=== PATIENT | female | born 2000 | race Caucasian/White ===

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

== ENCOUNTER → 2021-11-13 | Outpatient (CLI) | payer BC ==
[2021-11-13 18:04] LABS: Basophils # (A) 0.07 X 10*3/uL (0.00-0.10); Basophils % (A) 0.9 %; Eosinophils # (A) 0.47 X 10*3/uL (0.04-0.35); Eosinophils % (A) 6.1 %; HCT 44.5 % (37.2-46.3); HGB 14.6 g/dL (12.0-15.0); Lymphocytes # (A) 1.49 X 10*3/uL (0.90-5.00); Lymphocytes % (A) 19.4 %; MCH 27.9 pg (27.0-32.0); MCHC 32.8 g/dL (32.0-37.0); MCV 85.1 fL (80.0-97.0); Mean Platelet Volume 10.6 fL (9.5-12.2); Monocytes # (A) 0.58 X 10*3/uL (0.20-1.00); Monocytes % (A) 7.6 %; Neutrophils # (A) 5.04 X 10*3/uL (1.80-7.70); Neutrophils % (A) 65.7 %; Platelet Count 270 X 10*3/uL (140-440); RBC 5.23 X 10*6/uL (4.10-5.20); RDW 12.5 % (11.5-14.5); WBC 7.67 X 10*3/uL (4.50-10.00)
[2021-11-13 19:39] LABS: % Iron Saturation 34.33 (12.00-45.00)
== END | disposition home or self-care (01) ==
LOC: LABWHC1 13:00
PROVIDERS: ATTEND Internal Medicine Hematology & Oncology
DX: E05.90 Thyrotoxicosis, unspecified without thyrotoxic crisis or storm (principal); D50.9 Iron deficiency anemia, unspecified; D51.9 Vitamin B12 deficiency anemia, unspecified; J45.998 Other asthma
CPT/HCPCS: 36415; 82607; 82728; 83540; 83550; 83921; 85025

== ENCOUNTER 2022-06-18 23:07 | Emergency (ER) | payer BC ==
[2022-06-18 23:29] VITALS: BP 120/70; PULSE 94; RESP 20; TEMP 98.6
--- NOTE | 2022-06-18 23:57 | XR ---
EXAMINATION TYPE: XR chest 2V DATE OF EXAM: 06/18/2022 COMPARISON: NONE HISTORY: 04/28/2018 TECHNIQUE: 2 views FINDINGS: Heart and mediastinum are normal. Lungs are clear. Diaphragm is normal. Bony thorax appears normal. IMPRESSION: Normal chest. No change
[2022-06-19] MEDS ORDERED: ONDANSETRON ODT 4 MG TAB PO STA (00:05)
--- NOTE | 2022-06-19 00:13 | ED ---
General Adult HPI - General Chief complaint: Upper Respiratory Infection Stated complaint: covid + Time Seen by Provider: 06/18/22 23:44 Source: patient, RN notes reviewed Mode of arrival: ambulatory - History of Present Illness Initial comments: 22-year-old female presents to the emergency department requesting a Covid test. States she has nasal congestion, sore throat, body aches, nausea with oral intake, and a mild headache. States symptoms began yesterday morning and have worsened throughout the day today. Has taken Tylenol and Motrin with some improvement. Denies fever, chest pain, shortness of breath, if occulted breathing, abdominal pain, vomiting, diarrhea, dysuria, and hematuria. - Related Data Home Medications Medication Instructions Recorded Confirmed Albuterol Inhaler [Ventolin Hfa 1 - 2 puff INHALATION RT-Q6H PRN 10/27/19 09/12/20 Inhaler] Albuterol Nebulized [Ventolin 2.5 mg INHALATION Q6H 10/27/19 09/12/20 Nebulized] Cetirizine HCl [Zyrtec] 10 mg PO DAILY 10/27/19 09/12/20 norgestimate-ethinyl estradioL 1 each PO DAILY 10/27/19 09/12/20 [Femynor 28 Tablet] Levothyroxine Sodium [Synthroid] 100 mcg PO DAILY 08/17/20 09/12/20 Previous Rx's Medication Instructions Recorded Albuterol Sulfate [Proair Hfa] 1 - 2 puff INHALATION Q4HR PRN 06/19/22 #8.5 gm Nirmatrelvir/Ritonavir [Paxlovid 1 dose PO BID 5 Days #1 tab 06/19/22 2X150 mg-100 mg (Eua)] Ondansetron Odt [Zofran Odt] 4 mg PO Q8HR PRN #10 tab 06/19/22 Allergies Allergy/AdvReac Type Severity Reaction Status Date / Time No Known Allergies Allergy Verified 06/18/22 23:30 Review of Systems ROS Statement: Those systems with pertinent positive or pertinent negative responses have been documented in the HPI. ROS Other: All systems not noted in ROS Statement are negative. Past Medical History Past Medical History: Asthma, Thyroid Disorder Additional Past Medical History / Comment(s): IRON DEFICIENCY ANEMIA. History of Any Multi-Drug Resistant Organisms: None Reported Additional Past Surgical History / Comment(s): EAR TUBES BILATERALLY. TEAR DUCT SURGERY. Past Anesthesia/Blood Transfusion Reactions: No Reported Reaction Past Psychological History: Anxiety Smoking Status: Never smoker Past Alcohol Use History: None Reported Past Drug Use History: None Reported General Exam Limitations: no limitations General appearance: alert, in no apparent distress Eye exam: Present: normal appearance. Absent: scleral icterus, conjunctival injection, periorbital swelling ENT exam: Present: normal oropharynx, mucous membranes moist, TM's normal bilaterally Neck exam: Present: normal inspection, full ROM. Absent: tenderness, meningismus, lymphadenopathy Respiratory exam: Present: normal lung sounds bilaterally. Absent: respiratory distress, wheezes, rales, rhonchi, stridor, chest wall tenderness Cardiovascular Exam: Present: regular rate, normal rhythm, normal heart sounds. Absent: systolic murmur, diastolic murmur, rubs, gallop, clicks GI/Abdominal exam: Present: soft, normal bowel sounds. Absent: distended, tenderness, guarding, rebound, rigid Extremities exam: Present: normal inspection, full ROM, normal capillary refill. Absent: tenderness, pedal edema, joint swelling, calf tenderness Back exam: Present: normal inspection, full ROM. Absent: CVA tenderness (R), CVA tenderness (L) Neurological exam: Present: alert, oriented X3, CN II-XII intact, normal gait Psychiatric exam: Present: normal affect, normal mood Skin exam: Present: warm, dry, intact, normal color. Absent: rash Course Vital Signs 06/18/22 23:26 Temperature 98.6 F Pulse Rate 94 Respiratory 20 Rate Blood Pressure 120/70 O2 Sat by Pulse 99 Oximetry - Reevaluation(s) Reevaluation #1: 06/19/22 00:43 Prior to departure, patient complains of midsternal chest pain that worsens with deep breathing and movement of her upper extremities. Though this is likely an inflammatory process, EKG will be obtained. 06/19/22 01:20 EKG shows sinus rhythm with sinus arrhythmia. There are no concerning findings therefore patient will be discharged home and encouraged to use anti- inflammatory such as motrin for discomfort. Medical Decision Making - Medical Decision Making This is a 22-year-old female on day 2 of Covid related symptoms. Upon exam, patient is well appearing and in no acute distress. Her physical exam findings are unremarkable. She endorses headache, body aches, chills, mild nausea, and nasal stuffiness. Did complain of midsternal chest pain prior to departure for which an EKG was obtained and was normal sinus rhythm with no ectopy or ST segment changes. Chest x-ray was obtained and was negative. She requested monoclonal antibody infusion, however does not qualify. Discussed Paxlovid as an option; reviewed risks including rebound illness, patient verbalizes understanding and this prescription will be sent to her pharmacy. Also prescribed an albuterol inhaler Zofran for nausea. Discussed current CDC guidelines and encouraged her to contact her University and she is returning to college on Thursday. Return parameters were discussed in detail. Patient and mother verbalized understanding and agreed with this plan. Attending: Brannon. - Lab Data Lab Results 06/18/22 Range/Units 23:31 Coronavirus (PCR) Detected A (Not Detectd) - EKG Data EKG shows normal: sinus rhythm Rate: normal EKG Comments: EKG is obtained at 110 shows sinus rhythm with marked sinus arrhythmia. Ventricular rate 62, NE interval 147, QRS duration 82, QT/QTC 368/374. Patient borderline ECG. - Radiology Data Radiology results: report reviewed, image reviewed Two-view chest x-ray was obtained. Report was reviewed in its entirety. Impression per Dr. Hunter is normal chest. No change. Disposition Clinical Impression: COVID-19 Disposition: HOME SELF-CARE Condition: Stable Instructions (If sedation given, give patient instructions): COVID-19 (Coronavirus Disease 2019) (ED) Additional Instructions: Follow CDC guidelines which encourage quarantine for 5 days from symptoms onset, followed by 5 days of masking in public. Alternate Tylenol and Motrin for fever control and to treat body aches. Consider vitamin C, D, and zinc or take a multivitamin. Zofran is prescribed for nausea. Use your albuterol inhaler if you develop any shortness of breath. Follow-up with your PCP for a recheck via telephone or video visit if you're able to before returning to school. Return to the emergency department with any new, worsening, or concerning symptoms. Prescriptions: Nirmatrelvir/Ritonavir [Paxlovid 2X150 mg-100 mg (Eua)] 1 dose PO BID 5 Days #1 tab Albuterol Sulfate [Proair Hfa] 1 - 2 puff INHALATION Q4HR PRN #8.5 gm PRN Reason: difficulty in breathing Ondansetron Odt [Zofran Odt] 4 mg PO Q8HR PRN #10 tab PRN Reason: Nausea Is patient prescribed a controlled substance at d/c from ED?: No Referrals: Angel Dickerson MD [Primary Care Provider] - 1-2 days Time of Disposition: 01:20
[2022-06-19] MEDS ORDERED: diazePAM 5 MG TAB PO STA (01:29)
== END 2022-06-19 02:04 | disposition home or self-care (01) ==
LOC: EC 23:07
DX: U07.1 COVID-19 (principal); J45.909 Unspecified asthma, uncomplicated; E07.9 Disorder of thyroid, unspecified; F41.9 Anxiety disorder, unspecified; Z79.51 Long term (current) use of inhaled steroids; Z79.899 Other long term (current) drug therapy
CPT/HCPCS: 71046; 87635; 93005; 99284

== ENCOUNTER → 2025-03-15 | Outpatient (CLI) | payer BC | END | disposition home or self-care (01) | LOC: RADMAMWWP 10:26 | PROVIDERS: ATTEND Family Medicine | DX: Z53.9 Procedure and treatment not carried out, unspecified reason (principal) ==